=== PATIENT | female | born 1995 | race American Indian/Alaskan Native ===

== ENCOUNTER 2018-12-18 09:37 | Emergency (ER) | payer BC ==
[2018-12-18] MEDS ORDERED: KETOROLAC 60 MG/2 ML INJ IM ONE (10:28)
--- NOTE | 2018-12-18 10:33 | Emergency Department Report ---
ED Back Pain/Injury HPI - General Chief Complaint: Back Pain/Injury Stated Complaint: BACK PAIN Time Seen by Provider: 12/18/18 10:20 Source: patient Limitations: No Limitations - History of Present Illness Initial Comments: 23-year-old -Citizen Of [place] female patient presents with complaints of low back pain yesterday morning upon waking. She denies any injury or heavy lifting. She rates the back pain as a 10/10 in severity and describes it as a stabbing tightness in her back. She also denies any history of cancer, hematuria/hematochezia, numbness/tingling/weakness in legs, or loss of bladder/bowel control. States ibuprofen is not helping. -: Sudden Place: home Severity scale (0 -10): 10 Quality: stabbing Consistency: constant Improves With: none Worsens With: movement Treatments Prior to Arrival: NSAIDS - Related Data Previous Rx's Medication Instructions Recorded Last Taken Type Diclofenac Sodium 75 mg PO BID PRN #14 tablet. 12/18/18 Unknown Rx methOCARBAMOL [Robaxin TAB] 1,500 mg PO Q8H PRN #30 tablet 12/18/18 Unknown Rx Allergies Allergy/AdvReac Type Severity Reaction Status Date / Time No Known Allergies Allergy Unverified 12/18/18 09:48 ED Review of Systems ROS: Stated complaint: BACK PAIN Other details as noted in HPI Comment: All other systems reviewed and negative Musculoskeletal: back pain ED Past Medical Hx - Past Medical History Previous Medical History?: No - Surgical History Past Surgical History?: No - Social History Smoking Status: Current Some Day Smoker Substance Use Type: Alcohol - Medications Home Medications: Home Medications Medication Instructions Recorded Confirmed Last Taken Type Diclofenac Sodium 75 mg PO BID PRN #14 tablet. 12/18/18 Unknown Rx methOCARBAMOL [Robaxin TAB] 1,500 mg PO Q8H PRN #30 tablet 12/18/18 Unknown Rx ED Physical Exam - General Limitations: No Limitations - Head Head exam: Present: atraumatic, normocephalic - Eye Eye exam: Present: normal appearance - Respiratory Respiratory exam: Present: normal lung sounds bilaterally. Absent: respiratory distress - Cardiovascular Cardiovascular Exam: Present: regular rate, normal rhythm. Absent: systolic murmur, diastolic murmur, rubs, gallop - GI/Abdominal GI/Abdominal exam: Present: soft, normal bowel sounds. Absent: distended, tenderness, guarding, rebound - Rectal Rectal exam: Present: deferred - Back Exam Back exam: Present: full ROM, tenderness, vertebral tenderness. Absent: CVA tenderness (R), CVA tenderness (L), paraspinal tenderness - Neurological Exam Neurological exam: Present: alert, oriented X3. Absent: abnormal gait, motor sensory deficit - Psychiatric Psychiatric exam: Present: normal affect, normal mood - Skin Skin exam: Present: warm, dry, intact, normal color. Absent: rash ED Course Vital Signs 12/18/18 12/18/18 09:43 12:24 Temperature 98.3 F 98.5 F Pulse Rate 70 75 Respiratory 20 15 Rate Blood Pressure 159/99 Blood Pressure 128/70 [Left] O2 Sat by Pulse 98 99 Oximetry ED Medical Decision Making - Radiology Data Radiology results: report reviewed XR spine lumbosacral 2-3V INDICATION / CLINICAL INFORMATION: Low back pain. COMPARISON: None available. FINDINGS: BONES/JOINT(S): No vertebral fracture. No significant degenerative changes. Alignment and bone mineralization. SOFT TISSUES: IUD is noted projecting over the pelvis. ADDITIONAL FINDINGS: None. - Medical Decision Making 23-year-old -Citizen Of [place] female patient presents with complaints of low back pain yesterday morning upon waking. She denies any injury or heavy lifting. XR is wnl. Vitals are wnl. Pt denies any red flag symptoms. Will treat conservatively. Recommend ortho f/u for further evalaution and treatment. Strict return precautions were discussed in detail with who states understanding Critical care attestation.: If time is entered above; I have spent that time in minutes in the direct care of this critically ill patient, excluding procedure time. ED Disposition Clinical Impression: Low back pain Qualifiers: Chronicity: acute Back pain laterality: midline Sciatica presence: without sciatica Qualified Code(s): M54.5 - Low back pain Disposition: TO HOME OR SELFCARE Is pt being admited?: No Condition: Stable Instructions: Acute Low Back Pain (ED) Prescriptions: Diclofenac Sodium 75 mg PO BID PRN #14 tablet. PRN Reason: Pain , Severe (7-10) methOCARBAMOL [Robaxin TAB] 1,500 mg PO Q8H PRN #30 tablet PRN Reason: Muscle Spasm Referrals: MOLLY LUNA MD [Staff Physician] - 3-5 Days
[2018-12-18 10:52] LABS: Bilirubin,Urine NEG (Negative); Blood,Urine NEG (Negative); Color,Urine Yellow (Yellow); Mucus,Urine FEW /HPF; Protein,Urine <15 mg/dL mg/dL (Negative); Urobilinogen,Urine < 2.0 mg/dL (<2.0); WBC,Urine < 1.0 /HPF (0.0-6.0)
[2018-12-18 10:57] LABS: HCG Qualitative,Urine Negative (Negative)
--- NOTE | 2018-12-18 11:24 | XRay Report ---
XR spine lumbosacral 2-3V INDICATION / CLINICAL INFORMATION: Low back pain. COMPARISON: None available. FINDINGS: BONES/JOINT(S): No vertebral fracture. No significant degenerative changes. Alignment and bone minera lization. SOFT TISSUES: IUD is noted projecting over the pelvis. ADDITIONAL FINDINGS: None. Signer Name: Jian Becerra MD Signed: 12/18/2018 11:19 AM Workstation Name: [id number]
[2018-12-18 12:28] VITALS: BP 128/70
== END 2018-12-18 12:24 | disposition home or self-care (01) ==
LOC: ED 09:37
DX: M54.5 Low back pain (principal); F17.200 Nicotine dependence, unspecified, uncomplicated
CPT/HCPCS: 72100; 81001; 81025; 96372; 99283; J1885

== ENCOUNTER 2019-02-28 14:48 | Emergency (ER) | payer BC ==
[2019-02-28 15:13] VITALS: BP 154/86
[2019-02-28] MEDS ORDERED: IBUPROFEN 800 MG TAB PO ONE (15:37)
--- NOTE | 2019-02-28 15:37 | Event Note ---
ED Screening Note ED Screening Note: FEVER SINCE YESTERDAY COUGH MUSCLE ACHES NO ABD PAIN NO DYSURIA NO PCP PMH NONE This initial assessment/diagnostic orders/clinical plan/treatment(s) is/are subject to change based on patients health status, clinical progression and re- assessment by fellow clinical providers in the ED. Further treatment and workup at subsequent clinical providers discretion. Patient/guardian urged not to elope from the ED as their condition may be serious if not clinically assessed and managed. Initial orders include:
--- NOTE | 2019-02-28 15:41 | Emergency Department Report ---
Minor Respiratory - HPI Chief Complaint: Upper Respiratory Infection Stated Complaint: BODY WEAKNESS/HEADACHE Time Seen by Provider: 02/28/19 15:35 Duration: 1 Day Pain Location: Other Severity: moderate Minor Respiratory: Yes Sore Throat, Yes Able to Tolerate Fluids, Yes Cough, Yes Sick Contacts, Yes Fever, No Rhinorrhea, No Ear Pain, No Hemoptysis, No Chest Pain, No Shortness of Breath Other History: 23 YO FEMALE COMES TO ER WITH FLU LIKE SYMPTOMS. DAUGHTER JUST GETTING OVER CONFIRMED FLU. FEVER IN TRIAGE. NO ABD PAIN. NO DYSURIA. NO FLU SHOT THIS YEAR. NEURO INTACT ED Review of Systems ROS: Stated complaint: BODY WEAKNESS/HEADACHE Other details as noted in HPI Comment: All other systems reviewed and negative ED Past Medical Hx - Past Medical History Previous Medical History?: No - Surgical History Past Surgical History?: No - Family History Family history: no significant - Social History Smoking Status: Never Smoker Substance Use Type: None - Medications Home Medications: Home Medications Medication Instructions Recorded Confirmed Last Taken Type Oseltamivir [Tamiflu] 75 mg PO BID #10 cap 02/28/19 Unknown Rx Minor Respiratory Exam - Exam General: Vital signs noted. No distress. Alert and acting appropriately. HEENT: Yes Moist Mucous Membranes, No Pharyngeal Erythema, No Pharyngeal Exudates, No Rhinorrhea, No Conjuctival Injection, No Frontal Tenderness, No Maxillary Tenderness Ear: Neither TM Bulge, Neither TM Erythema, Neither EAC Pain, Neither EAC Discharge Neck: Yes Supple, No Adenopathy Lungs: Yes Good Air Exchange, No Wheezes, No Ronchi, No Stridor, No Cough, No Labored Respirations, No Retractions, No Use of Accessory Muscles, No Other Abnormal Lung Sounds Heart: Yes Regular, No Murmur Abdomen: Yes Normal Bowel Sounds, No Tenderness, No Peritoneal Signs Skin: No Rash, No Edema Neurologic: Alert and oriented, no deficits. Musculoskeletal: Unremarkable. ED Course Vital Signs 02/28/19 02/28/19 15:10 15:36 Temperature 102.0 F H 102 F H Pulse Rate 121 H 116 H Respiratory 20 18 Rate Blood Pressure 154/86 154/86 O2 Sat by Pulse 100 100 Oximetry ED Medical Decision Making - Medical Decision Making MEDICATED WITH MOTRIN FOR FEVER DC HOME WITH DC PLAN OF CARE/TAMIFLU AND PCP FOLLOWUP Vital Signs 02/28/19 02/28/19 15:10 15:36 Temperature 102.0 F H 102 F H Pulse Rate 121 H 116 H Respiratory 20 18 Rate Blood Pressure 154/86 154/86 O2 Sat by Pulse 100 100 Oximetry - Differential Diagnosis KNOWN FLU EXPOSURE Critical care attestation.: If time is entered above; I have spent that time in minutes in the direct care of this critically ill patient, excluding procedure time. ED Disposition Clinical Impression: Influenza, Exposure to the flu Disposition: DC-01 TO HOME OR SELFCARE Is pt being admited?: No Does the pt Need Aspirin: No Condition: Stable Instructions: Influenza (ED) Additional Instructions: REST HYDRATE WELL WITH WATER MOTRIN OR TYLENOL FOR PAIN OR FEVER MED ORDERED TODAY FOLLOW UP WITH PCP IN 48 H TO BE SURE YOU ARE GETTING BETTER REFERRAL BELOW Prescriptions: Oseltamivir [Tamiflu] 75 mg PO BID #10 cap Referrals: DONAVAN ELAM MD [Staff Physician] - 3-5 Days Time of Disposition: 15:39
== END 2019-02-28 17:01 | disposition home or self-care (01) ==
LOC: ED 14:48
DX: J11.1 Influenza due to unidentified influenza virus with other respiratory manifestations (principal); Z79.899 Other long term (current) drug therapy
CPT/HCPCS: 99282

== ENCOUNTER 2019-06-29 19:36 | Emergency (ER) | payer BC, MEDICAID ==
[2019-06-29 20:33] LABS: Bacteria,Urine 1+ /HPF (Negative); Bilirubin,Urine NEG (Negative); Blood,Urine NEG (Negative); Color,Urine Straw (Yellow); Protein,Urine <15 mg/dL mg/dL (Negative); Urobilinogen,Urine < 2.0 mg/dL (<2.0)
[2019-06-29 20:36] LABS: Basophils # (Auto) 0.1 K/mm3 (0.0-0.1); Basophils % (Auto) 0.7 % (0.0-1.8); Eosinophils # (Auto) 0.2 K/mm3 (0.0-0.4); Eosinophils % (Auto) 1.6 % (0.0-4.3); Hematocrit 36.9 % (30.3-42.9); Hemoglobin 11.6 gm/dl (10.1-14.3); Lymphocytes # (Auto) 3.5 K/mm3 (1.2-5.4); Lymphocytes % (Auto) 24.8 % (13.4-35.0); Mean Corpuscular HGB Conc 32 % (30-34); Mean Corpuscular Volume 77 fl (79-97); Monocytes # (Auto) 0.8 K/mm3 (0.0-0.8); Platelet Count 287 K/mm3 (140-440); Red Blood Count 4.78 M/mm3 (3.65-5.03); Red Cell Distribution Width 18.5 % (13.2-15.2)
[2019-06-29 21:02] LABS: Alanine Aminotransferase 9 units/L (7-56); BUN/Creatinine Ratio 11; Blood Urea Nitrogen 8 mg/dL (7-17); Calcium 9.6 mg/dL (8.4-10.2); Hemolysis Index 24
[2019-06-29] MEDS ORDERED: ACETAMINOPHEN 500 MG TAB PO ONE (21:03)
--- NOTE | 2019-06-29 22:31 | Ultrasound Report ---
ULTRASOUND PELVIS INDICATION / CLINICAL INFORMATION: PELVIC PAIN. TECHNIQUE: Transvaginal. Duplex Color Doppler used: Yes. COMPARISON: None available FINDINGS: UTERUS: - Appearance: No significant abnormality. - Size (cm): 7.5 x 4.0 x 5.1 - Endometrial Complex (if present): No thickening. Intrauterine device is present in the cervical can al. Thickness in cm (if measured) = 0.3 - Mass or cyst: None. - Additional findings: None. RIGHT ADNEXA: No significant ovarian cyst or mass. Normal color Doppler blood flow. LEFT ADNEXA: 2.5 cm left ovarian cyst. Normal color Doppler blood flow. URINARY BLADDER: Not visualized. FREE FLUID: None. ADDITIONAL FINDINGS: None. IMPRESSION: 1. Intrauterine device in the cervical canal. 2. 2.5 cm left ovarian cyst. This is a common finding. No routine follow-up is needed. Signer Name: Harsha Alaniz MD Signed: 06/29/2019 10:27 PM Workstation Name: [id number]
[2019-06-30] MEDS ORDERED: LIDOCAINE-MPF (1%) 10 MG/1 ML VIAL 5 ML INFILTRATI ONE (00:46)
--- NOTE | 2019-06-30 00:46 | Emergency Department Report ---
ED Female HPI - General Chief complaint: Abdominal Pain Stated complaint: VAGINAL BLEEDING, ABDOMINAL PAIN Source: patient Mode of arrival: Ambulatory Limitations: No Limitations - History of Present Illness Initial comments: Patient is a A0 23-year-old -[place] female with no past medical history and who has an IUD in place presents to the ED with acute onset pe rsistent suprapubic pain with vaginal bleeding intermittently for the last 2 weeks and which was initially heavy but currently light. Patient states that the pain got worse in the last 2 days. Patient denies nausea, vomiting, diarrhea, dizziness, headache, dyspareunia, dysuria, urinary frequency and urgency, vaginal bleeding, vaginal discharge, fever and chills, dizziness or low back pain. MD Complaint: vaginal bleeding, pelvic pain -: Sudden, week(s) (2) Location: suprapubic Radiation: non-radiating, suprapubic Severity: severe Severity scale (0 -10): 7 Quality: cramping, sharp Consistency: constant Improves with: none Worsens with: none Are you Now?: No Associated Symptoms: denies other symptoms, vaginal bleeding, abdominal pain (suprapubic pain). denies: vaginal discharge, nausea/vomiting, fever/chills, headaches, loss of appetite, dysuria, hematuria, rash, seizure, shortness of breath, syncope, weakness, other - Related Data Sexually active: Yes : 1 Para: 1 A: 0 Previous Rx's Medication Instructions Recorded Last Taken Type Oseltamivir [Tamiflu] 75 mg PO BID #10 cap 02/28/19 Unknown Rx Doxycycline Hyclate [Doxycycline 100 mg PO Q12HR #20 tab 06/30/19 Unknown Rx Hyclate TAB] Naproxen 500 mg PO Q12H PRN #24 tablet 06/30/19 Unknown Rx metroNIDAZOLE [Flagyl] 500 mg PO Q12HR #14 tab 06/30/19 Unknown Rx Allergies Allergy/AdvReac Type Severity Reaction Status Date / Time No Known Allergies Allergy Unverified 12/18/18 09:48 ED Review of Systems ROS: Stated complaint: VAGINAL BLEEDING, ABDOMINAL PAIN Other details as noted in HPI Constitutional: denies: chills, fever Eyes: denies: eye pain, eye discharge, vision change ENT: denies: ear pain, throat pain Respiratory: denies: cough, shortness of breath, wheezing Cardiovascular: denies: chest pain, palpitations Endocrine: no symptoms reported Gastrointestinal: abdominal pain (Vaginal bleeding suprapubic pain). denies: nausea, diarrhea Genitourinary: abnormal menses. denies: urgency, dysuria, discharge Musculoskeletal: denies: back pain, joint swelling, arthralgia Skin: denies: rash, lesions Neurological: denies: headache, weakness, paresthesias Psychiatric: denies: anxiety, depression Hematological/Lymphatic: denies: easy bleeding, easy bruising ED Past Medical Hx - Past Medical History Previous Medical History?: No - Surgical History Past Surgical History?: No - Social History Smoking Status: Never Smoker Substance Use Type: Alcohol, Marijuana - Medications Home Medications: Home Medications Medication Instructions Recorded Confirmed Last Taken Type Oseltamivir [Tamiflu] 75 mg PO BID #10 cap 02/28/19 Unknown Rx Doxycycline Hyclate [Doxycycline 100 mg PO Q12HR #20 tab 06/30/19 Unknown Rx Hyclate TAB] Naproxen 500 mg PO Q12H PRN #24 tablet 06/30/19 Unknown Rx metroNIDAZOLE [Flagyl] 500 mg PO Q12HR #14 tab 06/30/19 Unknown Rx ED Physical Exam - General Limitations: No Limitations General appearance: alert, in no apparent distress - Head Head exam: Present: atraumatic, normocephalic, normal inspection - Eye Eye exam: Present: normal appearance, PERRL, EOMI Pupils: Present: normal accommodation - ENT ENT exam: Present: normal exam, normal orophraynx, mucous membranes moist, TM's normal bilaterally, normal external ear exam - Neck Neck exam: Present: normal inspection, full ROM - Respiratory Respiratory exam: Present: normal lung sounds bilaterally. Absent: respiratory distress, wheezes, rales, rhonchi, chest wall tenderness, accessory muscle use, decreased breath sounds - Cardiovascular Cardiovascular Exam: Present: regular rate, normal rhythm, normal heart sounds. Absent: systolic murmur, diastolic murmur, rubs, gallop - GI/Abdominal GI/Abdominal exam: Present: soft, tenderness (Moderate palpable suprapubic tenderness), normal bowel sounds. 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 Absent: tenderness, CVA tenderness (R), CVA tenderness (L), muscle spasm, paraspinal tenderness, vertebral tenderness - Neurological Exam Neurological exam: Present: alert, oriented X3, CN II-XII intact, normal gait, reflexes normal - Psychiatric Psychiatric exam: Present: normal affect, normal mood - Skin Skin exam: Present: warm, dry, intact, normal color. Absent: rash ED Course Vital Signs 06/29/19 06/29/19 06/30/19 19:48 21:16 02:17 Temperature 98.4 F 97.9 F Pulse Rate 76 68 Respiratory 18 18 18 Rate Blood Pressure 140/92 Blood Pressure 157/106 [Right] O2 Sat by Pulse 100 100 Oximetry ED Medical Decision Making - Lab Data Result diagrams: 06/29/19 20:14 06/29/19 20:14 - Radiology Data Radiology results: report reviewed, image reviewed Findings [facility] [address] [place] [address] Ultrasound Report Signed Patient: ARIAN BUENO MR#: [id number] : 1995 Acct:[id number] Age/Sex: 23 / F ADM Date: 06/29/19 Loc: ED Attending Dr: Ordering Physician: JH SUMMERS Date of Service: 06/29/19 Procedure(s): US transvaginal Accession Number(s): [id number] cc: JH SUMMERS ULTRASOUND PELVIS INDICATION / CLINICAL INFORMATION: PELVIC PAIN. TECHNIQUE: Transvaginal. Duplex Color Doppler used: Yes. COMPARISON: None available FINDINGS: UTERUS: - Appearance: No significant abnormality. - Size (cm): 7.5 x 4.0 x 5.1 - Endometrial Complex (if present): No thickening. Intrauterine device is present in the cervical canal. Thickness in cm (if measured) = 0.3 - Mass or cyst: None. - Additional findings: None. RIGHT ADNEXA: No significant ovarian cyst or mass. Normal color Doppler blood flow. LEFT ADNEXA: 2.5 cm left ovarian cyst. Normal color Doppler blood flow. URINARY BLADDER: Not visualized. FREE FLUID: None. ADDITIONAL FINDINGS: None. IMPRESSION: 1. Intrauterine device in the cervical canal. 2. 2.5 cm left ovarian cyst. This is a common finding. No routine follow-up is needed. Signer Name: Harsha Alaniz MD Signed: 06/29/2019 10:27 PM Workstation Name: [id number] Transcribed By: DT Dictated By: Donovan Alaniz MD Electronically Authenticated By: Donovan Alaniz MD Signed Date/Time: 06/29/192226 DD/ 23 TD/TT: - Medical Decision Making This is a A0 23-year-old -[place] female with no past medical history and who has an IUD in place presents to the ED with acute onset persistent suprapubic pain with vaginal bleeding intermittently for the last 2 weeks and which was initially heavy but currently light. Patient states that the pain got worse in the last 2 days. In the ED, patient is alert and oriented x3 and is not in distress but appears uncomfortable. Patient was treated for pain in the ED and lab test results were reviewed and showed acute leukocytosis of 14,000. The rest of the lab test results are nonactionable except for wet prep that showed significant Gardnerella vaginalis. Chlamydia and gonorrhea tests are pending. Transvaginal ultrasound showed Intrauterine device in the cervical canal, and also a 2.5 cm left ovarian cyst. This is a common finding. No routine follow-up is needed. Pelvic exam was remarkable for cervical motion tenderness and left adnexal tenderness. Patient was empirically treated for PID in the ED. On reevaluation, patient's pain is well controlled with medications. 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 Patient was also advised to return to the ED immediately if symptoms get worse. - Differential Diagnosis UTI; PID; ; STD; Ovarian cyst Critical care attestation.: If time is entered above; I have spent that time in minutes in the direct care of this critically ill patient, excluding procedure time. ED Disposition Clinical Impression: Dysfunctional uterine hemorrhage, Bacterial vaginosis, Acute pelvic inflammatory disease (PID), Left ovarian cyst Disposition: DC-01 TO HOME OR SELFCARE Is pt being admited?: No Does the pt Need Aspirin: No Condition: Stable Instructions: Pelvic Inflammatory Disease (ED), Bacterial Vaginosis (ED), Dysfunctional Uterine Bleeding (ED), Abdominal Pain (ED) Additional Instructions: Take medications with food, drink plenty of fluids and follow-up with your CHARGE MASTER ANALYST physician in 3 to 5 days for reevaluation. Return to the ED immediately if symptoms get worse. Prescriptions: Doxycycline Hyclate [Doxycycline Hyclate TAB] 100 mg PO Q12HR #20 tab metroNIDAZOLE [Flagyl] 500 mg PO Q12HR #14 tab Naproxen 500 mg PO Q12H PRN #24 tablet PRN Reason: Pain , Severe (7-10) Referrals: PRIMARY CARE,MD [Primary Care Provider] - 3-5 Days Forms: STI Treatment and Prevention Time of Disposition: 02:05 Print Language: AZERI
[2019-06-30 02:46] LABS: HCG Qualitative,Urine Negative (Negative)
== END 2019-06-30 02:20 | disposition home or self-care (01) ==
LOC: ED 19:36
DX: N93.8 Other specified abnormal uterine and vaginal bleeding (principal); N76.0 Acute vaginitis; B96.89 Other specified bacterial agents as the cause of diseases classified elsewhere; N73.0 Acute parametritis and pelvic cellulitis; N83.202 Unspecified ovarian cyst, left side; F12.10 Cannabis abuse, uncomplicated; Z79.899 Other long term (current) drug therapy
CPT/HCPCS: 36415; 76830; 80053; 81001; 81025; 83690; 85025; 87210; 87591; 96372; 99284; J0696